=== PATIENT | male | born 1935 | race Caucasian/White ===

== ENCOUNTER 2019-04-29 10:02 | Outpatient (CLI) | payer MEDICARE, OTHER ==
--- NOTE | 2019-04-29 13:39 | CT ---
CT OF THE ABDOMEN AND PELVIS WITH IV CONTRAST: INDICATION: History of malignant neoplasm of the prostate status post prostatectomy and radiation therapy 20 year s ago now with elevated PSA. COMPARISON: Prior CT of the abdomen with and without contrast dated September 01, 2016. FINDINGS: The lung bases are clear. ABDOMEN: No focal hepatic lesion is evident. There is mild fatty infiltration of the liver. The pancreas and adrenal glands are normal-appearing. The spleen is normal-appearing. There is mild renal cortical thinning bilaterally. There is a 3 mm stone within the inferior pole of the left kidney which is stable.. No hydronephrosis is evident. No enlarged lymph nodes or free fluid is evident. PELVIC: There are stable postsurgical changes of a complete prostatectomy. There are scattered surgical clip s at the prostatic bed and along the pelvic sidewalls. No recurrent soft tissue mass is seen in the operative bed. No lymphadenopathy is noted. The visualized bladder, rectum, and perirectal soft tis sues are unremarkable-appearing. Unopacified large and small bowel reveal no definite acute abnormality. There is diffuse osteopenia. There is scattered degenerative and osteoarthritic change. There is a new sclerotic lesion involving the right anterolateral 7th rib. No additional sclerotic lesion is id entified. IMPRESSION: New sclerotic lesion involving the anterolateral aspect of the right 7th rib in light of the patient' s history is suspicious for an osteoblastic metastatic lesion. Whole body bone scan is recommended f or additional characterization for additional lesions. There is no evidence to suggest recurrent dis ease in the prostatectomy bed. No lymphadenopathy is seen within the pelvis or retroperitoneum. The re is no overt evidence of metastatic within the abdomen and pelvis. CODE T POS: OFF
--- NOTE | 2019-04-29 14:44 | NM ---
WHOLE BODY BONE SCAN: HISTORY: Prostate cancer, rising PSA RADIOPHARMACEUTICAL: 30 mCi technetium 99m-MDP injected intravenously COMPARISON:09/01/2016 CORRELATION: CT scan of the abdomen and pelvis from same date FINDINGS: Focally increased uptake in the right anterior seventh rib has increased in intensity and corresponds to a sclerotic lesion on the CT scan. Increased uptake in the right L5-S1 level is consistent with degenerative changes seen on the CT scan. There are postop changes of right knee arthroplasty. There scattered degenerative activity in the appendicular skeleton in the cervical spine. Tracer excretion through the kidneys is within normal limits. 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
== END 2019-04-29 10:03 | disposition home or self-care (01) ==
LOC: CT 10:02
PROVIDERS: ATTEND Radiology Radiation Oncology
DX: C61 Malignant neoplasm of prostate (principal)
CPT/HCPCS: 74177; 78306; 82565; A9503

== ENCOUNTER 2020-04-19 12:07 | Outpatient (CLI) | payer MEDICARE, OTHER ==
--- NOTE | 2020-04-19 13:33 | MRI ---
MR the lumbar spine without contrast INDICATION: 85-year-old male with spondylolisthesis of the lumbar region and low back pain COMPARISON: Lumbar spinal radiograph dated September 16, 2017 [facility] TECHNIQUE: Multiplanar multisequence MR images were obtained of lumbar spine without IV contrast. FINDINGS: Bone marrow: Bone marrow signal intensity appears within normal limits. Distal spinal cord and conus: Normal. The conus seen to terminate at L1. Visualized retroperitoneum and paraspinal soft tissues: Normal. Alignment: There is stable grade 1 anterolisthesis of L4 on L5 and retrolisthesis of L5 on S1. Vertebral levels: L5-S1: There is a broad-based disc osteophyte complex with facet joint hypertrophy inducing moderate to severe right and [id number] left neural foraminal narrowing.. L4-5: There is a broad-based pseudobulge with grade 1 anterolisthesis and severe facet joint degenera tive change inducing moderate to severe central canal narrowing with moderate bilateral neural foraminal narrowing, left greater than right. L3-4: There is a broad-based disc bulge with facet hypertrophy inducing moderate left and mild right neural foraminal narrowing. L2-3: No appreciable central canal or neuroforaminal narrowing. L1-L2: No appreciable central canal or neuroforaminal narrowing. T12-L1: No appreciable central canal or neuroforaminal narrowing. IMPRESSION: 1. Moderate to severe central canal narrowing with moderate bilateral neural foraminal narrowing, lef t greater than right, at L4-5. 2. Moderate to severe right and mild/moderate left neural foraminal narrowing at L5-S1. 3. Moderate left and mild right neural foraminal narrowing at L3-4. 4. Grade 1 anterolisthesis of L4 and L5 with mild retrolisthesis of L5 on S1.
--- NOTE | 2020-04-19 13:54 | RAD ---
XR Lumbar Spine Min 4 View History: Spondylolisthesis of the lumbar region Comparison: MRI same day Findings: Moderate L3/L4 and L5/S1 degenerative disc space height loss. Mild L4/L5 degenerative disc space height loss. Advanced facet arthrosis L3-S1. 2 mm L3 over L4 retrolisthesis without significant translation with flexion or extension. Grade 2 L4 over L5 anterolisthesis in neutral position also without significant translation with flexion or extension. Impression: Multilevel spondylosis and listhesis without abnormal translation with flexion or extensi on.
== END 2020-04-19 12:08 | disposition home or self-care (01) ==
LOC: BICMRI 12:07
PROVIDERS: ATTEND Specialist
DX: M43.16 Spondylolisthesis, lumbar region (principal); M47.816 Spondylosis without myelopathy or radiculopathy, lumbar region; M48.061 Spinal stenosis, lumbar region without neurogenic claudication; M48.07 Spinal stenosis, lumbosacral region; M43.17 Spondylolisthesis, lumbosacral region
CPT/HCPCS: 72110; 72148

== ENCOUNTER 2021-09-06 10:43 | Outpatient (CLI) | payer MEDICARE, OTHER | END 2021-09-06 10:44 | disposition home or self-care (01) | LOC: MRI 10:43 | PROVIDERS: ATTEND Nurse Practitioner Family | DX: M43.16 Spondylolisthesis, lumbar region (principal); M47.816 Spondylosis without myelopathy or radiculopathy, lumbar region; M51.36 Other intervertebral disc degeneration, lumbar region; M51.37 Other intervertebral disc degeneration, lumbosacral region; M48.061 Spinal stenosis, lumbar region without neurogenic claudication; M48.07 Spinal stenosis, lumbosacral region; M43.8X6 Other specified deforming dorsopathies, lumbar region | CPT/HCPCS: 72148 ==

== ENCOUNTER 2023-05-08 07:50 | Day surgery (SDC) | payer MEDICARE, OTHER ==
[2023-05-07 14:16] VITALS: BMI 22.6
[2023-05-08] MEDS ORDERED: Lidocaine 1% PF 5 ML VIAL ONE (08:10)
[2023-05-08] MEDS ORDERED: CEFAZOLIN 1 GM VIAL ONE (10:04)
[2023-05-08] MEDS ORDERED: Lidocaine 1% w/Epinephrine 1:100K 20 ML VIAL ONE (10:04)
[2023-05-08] MEDS ORDERED: Gentamicin 80 MG/2 ML VIAL ONE (10:04)
== END 2023-05-08 09:58 | disposition home or self-care (01) ==
LOC: CCL 07:50
PROVIDERS: ATTEND Internal Medicine Cardiovascular Disease
PROC: 0JH602Z Insertion of Monitoring Device into Chest Subcutaneous Tissue and Fascia, Open Approach (ICD-10-PCS; principal; 2023-05-08)
DX: I48.0 Paroxysmal atrial fibrillation (principal); R55 Syncope and collapse; I48.92 Unspecified atrial flutter; G20 Parkinson's disease; Z86.79 Personal history of other diseases of the circulatory system; Z88.5 Allergy status to narcotic agent; Z85.46 Personal history of malignant neoplasm of prostate; Z87.891 Personal history of nicotine dependence; Z79.899 Other long term (current) drug therapy
CPT/HCPCS: 33285; C1764; 33286; J0690; J1580

== ENCOUNTER 2024-08-22 08:54 | Outpatient (CLI) | payer MEDICARE, OTHER | END 2024-08-22 08:55 | disposition home or self-care (01) | LOC: CT 08:54 | PROVIDERS: ATTEND Internal Medicine Cardiovascular Disease | DX: T82.539A Leakage of unspecified cardiac and vascular devices and implants, initial encounter (principal); Z95.818 Presence of other cardiac implants and grafts | CPT/HCPCS: 36415; 71275; 82565 ==